=== PATIENT | female | born 1955 | race Two or more races ===

== ENCOUNTER 2016-07-14 07:59 | Emergency (ER) | payer MEDICAID ==
[~2016-07-14] VITALS: Ht 154.9 cm; Wt 64.9 kg
[~2016-07-14 07:59] MED LIST: ALPR0.5T7 PO; CALC500C71 PO; CIPR500T20 PO; HYDR25TA4 PO; LISI-275 PO; MORP15TA PO; MULT-569 PO; PAR20T PO; PERCOT PO; SENN8.6T15 PO
[2016-07-14 08:38] LABS: Basophils # (auto) 0 uL; Eosinophils # (auto) 0.1 uL; Eosinophils % (auto) 1.2 % (0.0-7.0); Hematocrit 41.9 % (36.0-46.0); Hemoglobin 14.4 g/dL (12.2-16.2); Lymphocytes # (auto) 1.5 uL; Mean Corpuscular Hemoglobin 28.4 pg (28.0-32.0); Mean Corpuscular Hgb Conc. 34.2 g/dL (32.0-36.0); Mean Corpuscular Volume 82.8 fL (80.0-100.0); Mean Platelet Volume 7.7 fL (7.4-10.4); Monocytes # (auto) 0.7 uL; Monocytes % (auto) 9.6 % (0.0-12.0); Neutrophils # (auto) 4.6 uL; Neutrophils % (auto) 67.2 % (37.0-80.0); Platelet Count (auto) 304 10^3/uL (140-450); Red Cell Distribution Width 15.9 % (11.6-16.0); White Blood Cell 6.9 10^3/uL (4.4-10.8)
[2016-07-14 08:42] LABS: Urine Bilirubin Negative (Negative); Urine Blood Negative /uL (Negative); Urine Color Yellow (Yellow); Urine Glucose Normal (Normal); Urine Ketone Negative (Negative); Urine Nitrite Negative (Negative); Urine RBC <1 /hpf (0 - 4); Urine Squamous Epithelial Cell FEW /hpf (<5); Urine Urobilinogen Normal (Negative); Urine pH 5.5 (5.0-8.0)
[2016-07-14 09:03] LABS: Albumin 3.6 g/dL (3.4-5.0); Alkaline Phosphatase 108 U/L (45-117); Anion Gap 6 (5-15); Aspartate Aminotransferase 41 U/L (15-37); BUN/Creatinine Ratio 21.4; Blood Urea Nitrogen 12 mg/dL (7-18); Carbon Dioxide 30 mmol/L (21-32); Chloride 104 mmol/L (98-107); GFR African American 142 mL/min; GFR Non-African American 117 mL/min; Glucose 102 mg/dL (74-106); Potassium 3.5 mmol/L (3.5-5.1); Sodium 140 mmol/L (136-145); Total Protein 7.5 g/dL (6.4-8.2)
[2016-07-14 10:42] VITALS: BP 115/77
== END 2016-07-14 11:36 | disposition home or self-care (01) ==
LOC: ER 07:59
DX: J45.909 Unspecified asthma, uncomplicated (principal); I10 Essential (primary) hypertension; Z90.710 Acquired absence of both cervix and uterus; Z85.3 Personal history of malignant neoplasm of breast
CPT/HCPCS: 36415; 71020; 80053; 81001; 85025

== ENCOUNTER 2017-05-02 14:18 | Emergency (ER) | payer MEDICAID ==
[~2017-05-02] VITALS: Ht 152.4 cm; Wt 68.9 kg
[~2017-05-02 14:18] MED LIST changes: -CIPR500T20 PO; -LISI-275 PO; +OMEP20CA74 PO; -SENN8.6T15 PO
[2017-05-02 14:44] VITALS: BP 117/59
[2017-05-02 15:57] LABS: Basophils # (auto) 0 uL; Basophils % (auto) 0.3 % (0.0-2.0); Eosinophils # (auto) 0.1 uL; Eosinophils % (auto) 1.6 % (0.0-7.0); Hematocrit 37.5 % (36.0-46.0); Hemoglobin 12.8 g/dL (12.2-16.2); Lymphocytes # (auto) 1.3 uL; Lymphocytes % (auto) 22.6 % (10.0-50.0); Mean Corpuscular Hemoglobin 29.8 pg (28.0-32.0); Mean Corpuscular Hgb Conc. 34.1 g/dL (32.0-36.0); Mean Corpuscular Volume 87.3 fL (80.0-100.0); Monocytes # (auto) 0.4 uL; Monocytes % (auto) 6.8 % (0.0-12.0); Neutrophils # (auto) 3.9 uL; Neutrophils % (auto) 68.7 % (37.0-80.0); Nucleated Red Blood Cells % 0.2 %; Platelet Count (auto) 231 10^3/uL (140-450); Red Cell Distribution Width 18.1 % (11.8-14.3); White Blood Cell 5.6 10^3/uL (4.4-10.8)
[2017-05-02 16:10] LABS: Urine Bacteria NONE SEEN /hpf (None Seen); Urine Blood Negative /uL (Negative); Urine Specific Gravity 1.008 (1.001-1.035); Urine WBC 1 /hpf (0 - 5)
[2017-05-02 16:19] LABS: Alanine Aminotransferase 24 U/L (13-56); Albumin 3.5 g/dL (3.4-5.0); Alkaline Phosphatase 113 U/L (45-117); Anion Gap 9 (5-15); Aspartate Aminotransferase 21 U/L (15-37); BUN/Creatinine Ratio 18.9; Bilirubin, Total 0.4 mg/dL (0.2-1.0); Blood Urea Nitrogen 10 mg/dL (7-18); Calcium 8.6 mg/dL (8.5-10.1); Carbon Dioxide 26 mmol/L (21-32); Chloride 105 mmol/L (98-107); GFR African American 151 mL/min; GFR Non-African American 125 mL/min; Glucose 115 mg/dL (74-106); Magnesium 2.3 mg/dL (1.6-2.6); Potassium 3.6 mmol/L (3.5-5.1); Sodium 140 mmol/L (136-145); Total Protein 7.2 g/dL (6.4-8.2)
== END 2017-05-02 21:15 | disposition left against medical advice (07) ==
LOC: ER 14:18
DX: R06.02 Shortness of breath (principal); R53.1 Weakness; Z53.21 Procedure and treatment not carried out due to patient leaving prior to being seen by health care provider
CPT/HCPCS: 36415; 71046; 80053; 81001; 83735; 84484; 85025; 93005

== ENCOUNTER → 2017-05-31 | Outpatient (CLI) | payer MEDICAID | END | disposition home or self-care (01) | LOC: Rad HDHVI 14:44 | PROVIDERS: ATTEND Internal Medicine | DX: I08.1 Rheumatic disorders of both mitral and tricuspid valves (principal); I10 Essential (primary) hypertension; I42.9 Cardiomyopathy, unspecified; Z85.43 Personal history of malignant neoplasm of ovary; Z85.3 Personal history of malignant neoplasm of breast; Z79.899 Other long term (current) drug therapy | CPT/HCPCS: 93306 ==

== ENCOUNTER 2017-10-18 08:42 | Emergency (ER) | payer MEDICAID ==
[~2017-10-18] VITALS: Ht 157.5 cm; Wt 72.6 kg
[2017-10-18] MEDS ORDERED: SODIUM CHLORIDE 0.9% 1,000 ML IV ONE (09:04)
[2017-10-18 09:24] LABS: Basophils # (auto) 0.1 uL; Basophils % (auto) 0.6 % (0.0-2.0); Eosinophils # (auto) 0.1 uL; Eosinophils % (auto) 0.4 % (0.0-7.0); Hematocrit 43.2 % (36.0-46.0); Hemoglobin 14.1 g/dL (12.2-16.2); Lymphocytes # (auto) 1.9 uL; Lymphocytes % (auto) 15.7 % (10.0-50.0); Mean Corpuscular Hemoglobin 28.4 pg (28.0-32.0); Mean Corpuscular Hgb Conc. 32.7 g/dL (32.0-36.0); Mean Corpuscular Volume 86.8 fL (80.0-100.0); Monocytes # (auto) 0.4 uL; Neutrophils # (auto) 9.8 uL; Neutrophils % (auto) 80.3 % (37.0-80.0); Platelet Count (auto) 204 10^3/uL (140-450); Red Blood Cells 4.98 10^6/uL (4.0-5.20); Red Cell Distribution Width 14.7 % (11.8-14.3); White Blood Cell 12.2 10^3/uL (4.4-10.8)
[2017-10-18 09:42] LABS: Albumin 4.1 g/dL (3.4-5.0); Bilirubin, Total 0.3 mg/dL (0.2-1.0); Total Protein 7.1 g/dL (6.4-8.2)
[2017-10-18] MEDS ORDERED: LORazepam 2MG/ML-1ML VIAL IV ONE (09:45)
[2017-10-18] MEDS ORDERED: DEXAMETHASONE SOD PHOS 4 MG/1ML SDV INJ IV ONE (11:15)
[2017-10-18] MEDS ORDERED: LEVETIRACETAM INJ 500 MG in D5W 5% 100 ML IV ONE (11:30)
[2017-10-18 11:52] VITALS: BP 116/68
== END 2017-10-18 12:06 | disposition short-term general hospital (02) ==
LOC: ER 08:42 → EDBD 08:42 → ER 12:06
DX: R56.9 Unspecified convulsions (principal); I10 Essential (primary) hypertension; Z90.49 Acquired absence of other specified parts of digestive tract; Z88.8 Allergy status to other drugs, medicaments and biological substances; Z88.6 Allergy status to analgesic agent; Z79.899 Other long term (current) drug therapy; Z90.710 Acquired absence of both cervix and uterus
CPT/HCPCS: 36415; 70450; 80053; 85025; 94761; 96374; 96375; 99285; J1100; J1953; J2060; 93005; J7060

== ENCOUNTER 2018-03-17 14:28 | Inpatient (IN) | payer MEDICAID ==
[~2018-03-17] VITALS: Ht 154.9 cm; Wt 93.0 kg
[2018-03-17] MEDS ORDERED: LORazepam 2MG/ML-1ML VIAL IV ONE (16:00)
[2018-03-17] MEDS ORDERED: LEVETIRACETAM INJ 1,000 MG in D5W 5% 100 ML IV ONE (16:15)
[2018-03-17 16:21] LABS: Basophils # (auto) 0 uL; Eosinophils # (auto) 0.1 uL; Lymphocytes # (auto) 1.1 uL; Mean Corpuscular Hemoglobin 30.5 pg (28.0-32.0); Monocytes # (auto) 0.5 uL; Red Blood Cells 2.54 10^6/uL (4.0-5.20); White Blood Cell 5.3 10^3/uL (4.4-10.8)
[2018-03-17 16:23] LABS: Albumin 3.7 g/dL (3.4-5.0); Calcium 8.2 mg/dL (8.5-10.1); Magnesium 1.9 mg/dL (1.6-2.6); Potassium 3.3 mmol/L (3.5-5.1)
[2018-03-17 16:25] LABS: Basophils % (auto) 0.5 % (0.0-2.0); Eosinophils % (auto) 1.5 % (0.0-7.0); Hematocrit 21.8 % (36.0-46.0); Hemoglobin 7.8 g/dL (12.2-16.2); Lymphocytes % (auto) 20.9 % (10.0-50.0); Mean Corpuscular Hgb Conc. 35.6 g/dL (32.0-36.0); Mean Corpuscular Volume 85.7 fL (80.0-100.0); Monocytes % (auto) 9.6 % (0.0-12.0); Neutrophils # (auto) 3.6 uL; Neutrophils % (auto) 67.5 % (37.0-80.0); Platelet Count (auto) 208 10^3/uL (140-450); Red Cell Distribution Width 17.7 % (11.8-14.3)
[2018-03-17 16:26] LABS: Bilirubin, Total 0.7 mg/dL (0.2-1.0); Total Protein 6.6 g/dL (6.4-8.2)
[2018-03-17] MEDS ORDERED: PROMETHAZINE HCL 25 MG/ML 1ML IV PRN (18:15)
[2018-03-17] MEDS ORDERED: OXYCODONE W/ ACETAMINOPHEN 5/325MG TABLET PO PRN (18:15)
[2018-03-17] MEDS ORDERED: LORazepam 2MG/ML-1ML VIAL IV PRN (18:15)
[2018-03-17] MEDS ORDERED: LORazepam 0.5 MG TAB PO PRN (18:15)
[2018-03-17] MEDS ORDERED: LACTULOSE 20Gm/30ML SOLN PO PRN (18:15)
[2018-03-17] MEDS ORDERED: TEMAZEPAM 15 MG CAP PO PRN (18:15)
[2018-03-17] MEDS ORDERED: MORPHINE SULFATE 4 MG/ML SYR/VIAL IV PRN (18:15)
[2018-03-17] MEDS ORDERED: NITROGLYCERIN 0.4 MG SL TAB SL PRN (18:15)
[2018-03-17] MEDS ORDERED: OSELTAMIVIR 75 MG CAP PO ONE (19:00)
[2018-03-17] MEDS ORDERED: VANCOMYCIN PER PHARMACY 0 MG IV SCH (19:15)
[2018-03-17] MEDS: AZITHROMYCIN 500MG/ 250ML 250 ML IV SCH (19:20)
[2018-03-17] MEDS: OSELTAMIVIR 75 MG CAP PO SCH (20:33)
[2018-03-17 20:56] VITALS: BP 127/72
[2018-03-17 21:10] VITALS: BP 153/75
--- NOTE | 2018-03-17 21:10 | NUR ---
Telemetry admit from ER IMMANUEL ALEXIS admitted to Telemetry unit. Patient oriented to MARCOS SON, primary RN, unit, room, bed, and unit policies regarding patient care and visiting hours. Patient now on continuous telemetry monitoring, tele box #10 Patient. Patient weighed by bedscale and encouraged to call if she need something. Patient is wake and alert. No S/S of distress/ SOB. Padded 2 upper side rails up for seizure precaution, bed locked in lowest position, call light and bed side table within reach. Patient's daughter at bedside. All questions and concerns addressed, patient verbalized understanding.
[2018-03-17] MEDS ORDERED: PIPERACILLIN-TAZOB 3.375GM 100 ML IV ONE (21:30)
--- NOTE | 2018-03-17 21:50 | NUR ---
Pharmacist called and want RN to clarify with MD if Keppra need to start tonight or in AM since patient already received Keppra IV in ER. Also need to verify the dose because Keppra tablet cannot be crushed or cut. Will page .
[2018-03-17 22:00] VITALS: BP 153/75
[2018-03-17] MEDS ORDERED: LEVETIRACETAM 500 MG TAB PO SCH ×2 (22:00)
[2018-03-17] MEDS ORDERED: VANCOMYCIN 1GM/250ML 250 ML IV ONE (22:00)
[2018-03-17] MEDS ORDERED: CAR3125T PO (22:21)
[2018-03-17] MEDS ORDERED: LORA-654 PO (22:21)
[2018-03-17] MEDS ORDERED: LEVE500T22 PO (22:21)
[2018-03-17] MEDS ORDERED: ATOR20TA PO (22:21)
[2018-03-17] MEDS ORDERED: CHOL10006 PO (22:21)
[2018-03-17] MEDS ORDERED: FAM20T PO (22:21)
[2018-03-17] MEDS ORDERED: HYDR2TAB58 PO (22:21)
[2018-03-17] MEDS ORDERED: OMEP20TA PO (22:21)
[2018-03-17] MEDS ORDERED: PAR20T PO (22:21)
[2018-03-17] MEDS ORDERED: NIRA100C PO (22:28)
[2018-03-17] MEDS: ALPRAZolam 0.5 MG TAB PO SCH (22:28)
[2018-03-17] MEDS: MORPHINE SULF 15mg ER tab PO SCH (22:29)
[2018-03-17] MEDS ORDERED: CETI10CA PO (22:29)
--- NOTE | 2018-03-17 23:15 | NUR ---
returned call MANJINDER Morgan returned call, updated on patient status and reason for call, orders received. Keppra dose change to 1000mg BID PO. Will start in AM. Continue care.
[2018-03-18] MEDS: DEXAMETHASONE SOD PHOS 4 MG/1ML SDV INJ IV SCH ×4 (00:08→18:16)
[2018-03-18 00:33] VITALS: BP 153/75
[2018-03-18] MEDS: PIPERACILLIN-TAZOB 3.375GM 100 ML IV SCH ×3 (03:30→15:32)
[2018-03-18 05:00] VITALS: BP 117/71
--- NOTE | 2018-03-18 05:00 | NUR ---
Patient's called. Provided patient's current condition and plan of care. Transferred call to patient's bedside phon.
[2018-03-18] MEDS: IPRATROPIUM BROM 0.5 MG/2.5ML INH SOL NEB SCH ×4 (06:09→18:36)
--- NOTE | 2018-03-18 06:30 | NUR ---
patient's influenza A & B result is negative, will discontinue scheduled Tamiflu.
[2018-03-18] MEDS: MORPHINE SULFATE 4 MG/ML SYR/VIAL IV PRN ×2 (06:39→18:28)
[2018-03-18] MEDS: OSELTAMIVIR 75 MG CAP PO SCH (06:55)
--- NOTE | 2018-03-18 08:00 | NUR ---
RECEIVED PT RESTING IN BED, CALL LIGHT WITHIN REACH, PT DENIES ANY PAIN OR DISCOMFORT, COMMODE AT BED SIDE, WILL CONTINUE TO MONITOR PT.
[2018-03-18 09:00] VITALS: BP 106/61
[2018-03-18 09:09] LABS: Alanine Aminotransferase 77 U/L (13-56); Albumin 3.7 g/dL (3.4-5.0); Anion Gap 9 (5-15); Aspartate Aminotransferase 46 U/L (15-37); BUN/Creatinine Ratio 16.1; Blood Urea Nitrogen 10 mg/dL (7-18); Calcium 8.2 mg/dL (8.5-10.1); Carbon Dioxide 22 mmol/L (21-32); Chloride 109 mmol/L (98-107); GFR African American 125 mL/min; GFR Non-African American 104 mL/min; Glucose 187 mg/dL (74-106); Sodium 140 mmol/L (136-145)
[2018-03-18 09:13] LABS: Alkaline Phosphatase 167 U/L (45-117); Bilirubin, Total 0.9 mg/dL (0.2-1.0); Total Protein 6.8 g/dL (6.4-8.2)
[2018-03-18] MEDS: ALPRAZolam 0.5 MG TAB PO SCH (09:22)
[2018-03-18] MEDS: MORPHINE SULF 15mg ER tab PO SCH (09:23)
[2018-03-18] MEDS ORDERED: CALCIUM CARB 500 MG CHEW TAB PO SCH (10:00)
[2018-03-18] MEDS ORDERED: PANTOPRAZOLE 40 MG TAB PO SCH (10:00)
[2018-03-18] MEDS ORDERED: LEVETIRACETAM 500 MG TAB PO SCH (10:00)
--- NOTE | 2018-03-18 11:57 | NUR ---
SCHEDULED MN TX NOT GIVEN. PT DECLINED MN TX. PT ON RA, 98% O2 SATS, HR 69 BPM, RR17, BS ARE CLEAR TO AUSCULTATION, SKIN IS DRY AND WARM TO THE TOUCH. PT DENIES SOB OR ANY OTHER RESPIRATORY DISTRESS. SACHIN KERR WAS INFORMED. WILL CONTINUE TO MONITOR PT. Addendum: 03/18/18 at 1200 by Eli Montenegro RT PLEASE DISREGARD NOTE ABOUT MN TX REFUSAL, IT WAS DONE BY MISTAKE ON THE WRONG PT.
[2018-03-18] MEDS ORDERED: VANCOMYCIN 1GM/250ML 250 ML IV SCH (12:00)
[2018-03-18 13:32] VITALS: BP 119/59
--- NOTE | 2018-03-18 14:46 | NUR ---
DR. WILLS AT BED SIDE TO SEE PT.
[2018-03-18 17:00] VITALS: BP 132/107
[2018-03-18] MEDS: AZITHROMYCIN 500MG/ 250ML 250 ML IV SCH (18:16)
--- NOTE | 2018-03-18 18:38 | NUR ---
DR. SARKAR / NEUROLOGIST AT BED SIDE TO SEE PT.
--- NOTE | 2018-03-18 18:55 | NUR ---
CALLED AND SPOKE TO DR. WILLS, DOCTOR INFORMED THAT PER DR. SARKAR/NEURO PT CAN BE D/C TODAY, ORDERS RECEIVED FOR PT TO BE D/C TODAY AND TO GIVE PT'S PRESCRIPTIONS ON THE CHART FOR ANTIBIOTIC AND FOR NEBULIZER WITH FACE MASK.
[2018-03-18 19:14] VITALS: BP 132/107
--- NOTE | 2018-03-18 20:24 | NUR ---
Discharge instructions given as ordered. Encourage to follow up with PMD as instructed. All questions and concerns addressed. Patient verbalized understanding. Medication reconciliation form completed and copy given to patient.IV removed with catheter intact, pressure dressing applied. Telemetry unit returned to ICU. Patient taken to vehicle via wheelchair with all personal belongings, accompanied by staff and family member. No distress noted at time of departure.
== END 2018-03-18 20:40 | disposition home or self-care (01) | DRG 139 ==
LOC: EDBD 14:28 → ER 14:28 → TELE 18:15 → TELE-CENTR 20:54
PROVIDERS: ADMIT Internal Medicine; ATTEND Internal Medicine
DX: J18.9 Pneumonia, unspecified organism (principal); G93.6 Cerebral edema; C79.31 Secondary malignant neoplasm of brain; Z86.74 Personal history of sudden cardiac arrest; G40.89 Other seizures; D63.8 Anemia in other chronic diseases classified elsewhere; B19.20 Unspecified viral hepatitis C without hepatic coma; E87.6 Hypokalemia; I10 Essential (primary) hypertension; J45.909 Unspecified asthma, uncomplicated; Z85.43 Personal history of malignant neoplasm of ovary; Z85.3 Personal history of malignant neoplasm of breast; Z80.3 Family history of malignant neoplasm of breast; Z90.12 Acquired absence of left breast and nipple; Z90.710 Acquired absence of both cervix and uterus; Z82.49 Family history of ischemic heart disease and other diseases of the circulatory system; Z83.3 Family history of diabetes mellitus; Z85.42 Personal history of malignant neoplasm of other parts of uterus; Z92.3 Personal history of irradiation; Z90.49 Acquired absence of other specified parts of digestive tract; Z81.8 Family history of other mental and behavioral disorders; Z90.721 Acquired absence of ovaries, unilateral
CPT/HCPCS: 36415; 70450; 71045; 80053; 83735; 85025; 87804; 93005; 94640; 94761; 96365; 96367; 96375; 99291; G0378; J1100; J2543; J7060

== ENCOUNTER 2018-10-17 23:07 | Emergency (ER) | payer MEDICAID ==
[~2018-10-17] VITALS: Ht 152.4 cm; Wt 75.7 kg
[~2018-10-17 23:07] MED LIST changes: +ATOR20TA PO; -CALC500C71 PO; +CAR3125T PO; +CETI10CA PO; +CHOL10006 PO; +FAM20T PO; -HYDR25TA4 PO; +HYDR2TAB58 PO; +LEVE500T22 PO; +LORA0.5T12 PO; +NIRA100C PO; +OMEP20TA PO
[2018-10-17 23:36] LABS: Basophils # (auto) 0.1 uL; Basophils % (auto) 0.8 % (0.0-2.0); Eosinophils # (auto) 0.1 uL; Eosinophils % (auto) 1.7 % (0.0-7.0); Hematocrit 42.6 % (36.0-46.0); Hemoglobin 14.6 g/dL (12.2-16.2); Lymphocytes # (auto) 1.5 uL; Mean Corpuscular Hemoglobin 30.3 pg (28.0-32.0); Mean Corpuscular Hgb Conc. 34.4 g/dL (32.0-36.0); Monocytes # (auto) 0.6 uL; Monocytes % (auto) 7.6 % (0.0-12.0); Neutrophils # (auto) 5.5 uL; Neutrophils % (auto) 70.9 % (37.0-80.0); Nucleated Red Blood Cells % 0.1 %; Platelet Count (auto) 302 10^3/uL (140-450); Red Blood Cells 4.84 10^6/uL (4.0-5.20); Red Cell Distribution Width 14.6 % (11.8-14.3); White Blood Cell 7.8 10^3/uL (4.4-10.8)
[2018-10-17 23:54] LABS: Albumin 3.4 g/dL (3.4-5.0); BUN/Creatinine Ratio 24.1; Calcium 8.3 mg/dL (8.5-10.1); Potassium 3.5 mmol/L (3.5-5.1)
[2018-10-17 23:57] LABS: Bilirubin, Total 0.6 mg/dL (0.2-1.0); Total Protein 7.2 g/dL (6.4-8.2)
[2018-10-18 00:02] LABS: Urine Bacteria FEW /hpf (None Seen); Urine Blood Negative /uL (Negative); Urine Hyaline Cast FEW /lpf (0 - 2); Urine Mucus FEW (None Seen); Urine Specific Gravity 1.026 (1.001-1.035); Urine WBC 1 /hpf (0 - 5)
[2018-10-18] MEDS ORDERED: ONDANSETRON HCL 4 MG/2 ML VIAL IV ONE (01:00)
[2018-10-18] MEDS ORDERED: MORPHINE SULFATE 4 MG/ML SYR/VIAL IV ONE (01:00)
[2018-10-18] MEDS ORDERED: LEVETIRACETAM INJ 1,000 MG in D5W 5% 100 ML IV ONE (03:15)
[2018-10-18] MEDS ORDERED: LORazepam 0.5 MG TAB PO ONE (03:15)
[2018-10-18] MEDS ORDERED: LEVETIRACETAM 500 MG/5ML INJ IV ONE (03:15)
[2018-10-18] MEDS ORDERED: predniSONE 20 MG TAB PO ONE (03:15)
[2018-10-18 05:00] VITALS: BP 119/65
== END 2018-10-18 05:52 | disposition home or self-care (01) ==
LOC: EDBD 23:07 → ER 23:10
DX: R56.9 Unspecified convulsions (principal); R51 Headache; H92.01 Otalgia, right ear; I10 Essential (primary) hypertension; Z90.710 Acquired absence of both cervix and uterus; Z90.49 Acquired absence of other specified parts of digestive tract
CPT/HCPCS: 36415; 71045; 80053; 81001; 85025; 93005; 94761; 96365; 96375; 99284; J1953; J2270; J2405; J7060; J7512

== ENCOUNTER 2020-04-09 07:11 | Emergency (ER) | payer MEDICAID ==
[~2020-04-09] VITALS: Ht 167.6 cm; Wt 72.6 kg
[~2020-04-09 07:11] MED LIST changes: -FAM20T PO; +FAMO20TA10 PO; -LEVE500T22 PO; +LEVE500T32 PO; -LORA0.5T12 PO; +LORA0.5T20 PO; -MULT-569 PO; +MULT1TAB28 PO
[2020-04-09] MEDS ORDERED: FLUMAZENIL 0.1 MG/ML INJ 10ML MDV IV ONE (07:30)
[2020-04-09 07:49] LABS: Basophils # (auto) 0.1 10 ^3/uL (0-0.2); Basophils % (auto) 0.7 % (0.0-2.0); Eosinophils # (auto) 0.1 10 ^3/uL (0-0.8); Eosinophils % (auto) 1.2 % (0.0-7.0); Hematocrit 42.9 % (36.0-46.0); Hemoglobin 14.5 g/dL (12.2-16.2); Lymphocytes # (auto) 2.8 10 ^3/uL (0.4-5.4); Lymphocytes % (auto) 24.4 % (10.0-50.0); Mean Corpuscular Hemoglobin 29.2 pg (28.0-32.0); Mean Corpuscular Hgb Conc. 33.8 g/dL (32.0-36.0); Mean Corpuscular Volume 86.5 fL (80.0-100.0); Monocytes # (auto) 0.9 10 ^3/uL (0-1.3); Neutrophils # (auto) 7.5 10 ^3/uL (1.6-8.6); Neutrophils % (auto) 65.7 % (37.0-80.0); Nucleated Red Blood Cells % 0.2 %; Platelet Count (auto) 327 10^3/uL (140-450); Red Blood Cells 4.95 10^6/uL (4.0-5.20); Red Cell Distribution Width 14.9 % (11.8-14.3); White Blood Cell 11.4 10^3/uL (4.4-10.8)
[2020-04-09 08:08] LABS: Albumin 3.3 g/dL (3.4-5.0); Anion Gap 7 (5-15); BUN/Creatinine Ratio 32.8; Blood Urea Nitrogen 19 mg/dL (7-18); Calcium 8.4 mg/dL (8.5-10.1); Carbon Dioxide 25 mmol/L (21-32); Chloride 108 mmol/L (98-107); GFR African American 135 mL/min; GFR Non-African American 111 mL/min; Glucose 95 mg/dL (74-106); Magnesium 1.7 mg/dL (1.6-2.6); Potassium 3.5 mmol/L (3.5-5.1); Sodium 140 mmol/L (136-145)
[2020-04-09 08:13] LABS: Lactic Acid w/Reflex 2.2 mmol/L (0.4-2.0)
[2020-04-09 08:14] LABS: Alanine Aminotransferase 102 U/L (13-56); Alkaline Phosphatase 115 U/L (45-117); Aspartate Aminotransferase 73 U/L (15-37); Bilirubin, Total 0.7 mg/dL (0.2-1.0); Total Protein 7.4 g/dL (6.4-8.2)
[2020-04-09 09:01] LABS: Urine Bacteria NONE SEEN /hpf (None Seen); Urine Blood Negative /uL (Negative); Urine Mucus FEW (None Seen); Urine Specific Gravity 1.024 (1.001-1.035); Urine WBC 1 /hpf (0 - 5)
[2020-04-09 09:16] LABS: Amphetamine Screen, Urine NEGATIVE (NEGATIVE); Barbiturate Scree,Urine NEGATIVE (NEGATIVE); Benzodiazephine Screen, Urine POSITIVE (NEGATIVE); Cannabinoid Screen, Urine NEGATIVE (NEGATIVE); Cocaine Screen, Urine NEGATIVE (NEGATIVE); Opiate Scree,Urine POSITIVE (NEGATIVE); Phencyclidine Screen, Urine NEGATIVE (NEGATIVE)
[2020-04-09] MEDS ORDERED: KEP500T PO ×2 (11:03)
[2020-04-09] MEDS ORDERED: LACO200T PO (11:03)
[2020-04-09] MEDS ORDERED: LORA0.5T20 PO (11:03)
[2020-04-09] MEDS ORDERED: METF-370 PO (11:03)
[2020-04-09] MEDS ORDERED: MONT10TA34 PO (11:03)
[2020-04-09] MEDS ORDERED: cefTRIAXone 1GM/50ML D5W 50 ML IV ONE (11:45)
[2020-04-09] MEDS ORDERED: AZITHROMYCIN 500MG/ 250ML 250 ML IV ONE (11:45)
[2020-04-09] MEDS ORDERED: MORPHINE SULF INJ 2 MG/ML SYRINGE 1ML IV ONE ×2 (11:45→14:00)
[2020-04-09] MEDS ORDERED: ONDANSETRON HCL 4 MG/2 ML VIAL IV ONE (11:45)
[2020-04-09 13:36] VITALS: BP 136/67
[2020-04-09] MEDS ORDERED: MORPHINE SULF INJ 2 MG/ML SYRINGE 1ML ONE (13:54)
== END 2020-04-09 14:10 | disposition left against medical advice (07) ==
LOC: ER 07:11 → EDUNIT# 07:11 → EDBD 07:11 → ER 14:10
DX: J18.9 Pneumonia, unspecified organism (principal); G93.41 Metabolic encephalopathy; R41.82 Altered mental status, unspecified; I10 Essential (primary) hypertension; Z90.710 Acquired absence of both cervix and uterus; Z20.822 Contact with and (suspected) exposure to COVID-19; Z88.6 Allergy status to analgesic agent
CPT/HCPCS: 36415; 36600; 51702; 70450; 71250; 80053; 80307; 81001; 82805; 83605; 83735; 84484; 85025; 87040; 87426; 93005; 96365; 96367; 96368; 96375; 96376; 99291; C9803; J0456; J0696; J1953; J2270; J2405; J7060; U0003